=== PATIENT | male | born 1990 | race Caucasian/White ===

== ENCOUNTER 2023-12-07 15:42 | Outpatient (CLI) | payer BC, SELFPAY ==
[2023-12-07 18:11] LABS: Sperm Present Sperm Not Present
== END 2023-12-07 15:43 | disposition home or self-care (01) ==
LOC: LAB 15:45
PROVIDERS: Visit Provider Urology
DX: Z98.52 Vasectomy status (principal)
CPT/HCPCS: 89310

== ENCOUNTER → 2024-03-22 10:07 | Outpatient (BNVA) | payer BC, SELFPAY | PROVIDERS: Visit Provider Nurse Practitioner | DX: R09.A2 Foreign body sensation, throat (principal) | CPT/HCPCS: 71046 ==